=== PATIENT | male | born 1960 | race Caucasian/White ===

== ENCOUNTER 2018-09-17 15:14 | Emergency (ER) | payer OTHER ==
[~2018-09-17] VITALS: Ht 170.2 cm; Wt 102.1 kg
--- NOTE | 2018-09-17 15:45 | ED General ---
General Chief Complaint: Dizziness/Syncope Stated Complaint: DIZZINESS Source of Information: Patient Exam Limitations: No Limitations History of Present Illness Date Seen by Provider: Sep 17, 2018 Time Seen by Provider: 15:20 Initial Comments Here by EMS with report of near syncope. Apparently he was at a when he started feeling weak and lightheaded. He was able to make it outside and was feeling a little worse and was able to lay down on the ground. This didn't help. EMS was summoned and brought him here. Vital signs appropriate and normal for EMS. Does have history of previous stroke 2 years ago with no residual. Has been suffering from upper respiratory symptoms over the last couple of weeks and finished a Z-Ron about a week ago but had return of symptoms a few days ago and currently is doing antihistamine for sore throat and runny nose as well as some nasal congestion. Denies nausea, vomiting, sweating or breathing problems. Still has a little bit of dizziness which he is actually describing more as lightheadedness. Currently states feels a little better. He comes from [facility]. He is here with his brother at the . Timing/Duration: 1 Hour, Changing Over Time, Intermittent (last 1-2 weeks) Severity: Mild, Moderate Modifying Factors: worse with Movement; improves with Rest Associated Systoms: No Chest Pain, No Diaphoresis, No Fever/Chills, No Headaches, No Shortness of Air; Syncope, Weakness Allergies and Home Medications Allergies Coded Allergies: ibuprofen (Verified Allergy, Unknown, 09/17/18) Home Medications Amlodipine Besylate 5 Mg Tablet, 5 MG PO DAILY, (Reported) Carvedilol 3.125 Mg Tablet, 3.125 MG PO BID, (Reported) Oxycodone HCl/Acetaminophen 1 Each Tablet, 1 EACH PO Q4H PRN for PAIN-MODERATE, (Reported) Patient Home Medication List Home Medication List Reviewed: Yes Review of Systems Review of Systems Constitutional: see HPI; No chills, No fever; weakness EENTM: see HPI; No ear pain, No mouth pain Respiratory: No cough, No short of breath Cardiovascular: see HPI; No palpitations Gastrointestinal: No abdominal pain, No nausea, No vomiting Genitourinary: no symptoms reported Musculoskeletal: no symptoms reported Skin: no symptoms reported Psychiatric/Neurological: See HPI Hematologic/Lymphatic: No Symptoms Reported All Other Systems Reviewed Negative Unless Noted: Yes Past Wxwfcff-Btixih-Aqayem Hx Past Med/Social Hx: Reviewed Nursing Past Med/Soc Hx Patient Social History Alcohol Use: Denies Use Recreational Drug Use: No Smoking Status: Never a Smoker Physical Abuse: No Sexual Abuse: No Mistreated: No Fear: No Past Medical History Surgeries: Yes Gallbladder, Orthopedic Respiratory: No Cardiac: Yes Hypertension Neurological: Yes Stroke Genitourinary: No Gastrointestinal: Yes Gastroesophageal Reflux Musculoskeletal: No Endocrine: No Cancer: No Family Medical History Reviewed Nursing Family Hx Physical Exam Vital Signs Vital Signs - First Documented 09/17/18 15:35 Temp 96.9 Pulse 84 Resp 20 B/P (MAP) 151/89 (109) Pulse Ox 97 Capillary Refill : Height, Weight, BMI Height: '" Weight: lbs. oz. 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 Skin: Normal Color, Warm/Dry Progress/Results/Core Measures Suspected Sepsis SIRS Temperature: Pulse: Respiratory Rate: Laboratory Tests 09/17/18 15:36: White Blood Count 10.1 Blood Pressure / Mean: Laboratory Tests 09/17/18 15:36: Creatinine 0.97, Platelet Count 281, Total Bilirubin 0.7 Results/Orders Lab Results Laboratory Tests Test 09/17/18 15:36 09/17/18 16:30 Range/Units White Blood Count 10.1 4.3-11.0 10^3/uL Red Blood Count 5.13 4.35-5.85 10^6/uL Hemoglobin 14.6 13.3-17.7 G/DL Hematocrit 43 40-54 % Mean Corpuscular Volume 83 80-99 FL Mean Corpuscular Hemoglobin 29 25-34 PG Mean Corpuscular Hemoglobin Concent 34 32-36 G/DL Red Cell Distribution Width 13.7 10.0-14.5 % Platelet Count 281 130-400 10^3/uL Mean Platelet Volume 8.5 7.4-10.4 FL Neutrophils (%) (Auto) 68 42-75 % Lymphocytes (%) (Auto) 18 12-44 % Monocytes (%) (Auto) 6 0-12 % Eosinophils (%) (Auto) 7 0-10 % Basophils (%) (Auto) 1 0-10 % Neutrophils # (Auto) 6.8 1.8-7.8 X 10^3 Lymphocytes # (Auto) 1.9 1.0-4.0 X 10^3 Monocytes # (Auto) 0.7 0.0-1.0 X 10^3 Eosinophils # (Auto) 0.7 H 0.0-0.3 10^3/uL Basophils # (Auto) 0.1 0.0-0.1 10^3/uL D-Dimer 0.33 0.00-0.49 UG/ML Sodium Level 139 135-145 MMOL/L Potassium Level 3.7 3.6-5.0 MMOL/L Chloride Level 104 98-107 MMOL/L Carbon Dioxide Level 28 21-32 MMOL/L Anion Gap 7 5-14 MMOL/L Blood Urea Nitrogen 11 7-18 MG/DL Creatinine 0.97 0.60-1.30 MG/DL Estimat Glomerular Filtration Rate > 60 BUN/Creatinine Ratio 11 Glucose Level 131 H 70-105 MG/DL Calcium Level 9.9 8.5-10.1 MG/DL Corrected Calcium 9.7 8.5-10.1 MG/DL Total Bilirubin 0.7 0.1-1.0 MG/DL Aspartate Amino Transf (AST/SGOT) 22 5-34 U/L Alanine Aminotransferase (ALT/SGPT) 19 0-55 U/L Alkaline Phosphatase 46 40-136 U/L Troponin I < 0.30 <0.30 NG/ML C-Reactive Protein High Sensitivity 1.34 H 0.00-0.50 MG/DL Total Protein 7.2 6.4-8.2 GM/DL Albumin 4.2 3.2-4.5 GM/DL Thyroid Stimulating Hormone (TSH) 1.65 0.35-4.94 UIU/ML Urine Color YELLOW Urine Clarity CLEAR Urine pH 7 5-9 Urine Specific [place] 1.010 L 1.016-1.022 Urine Protein NEGATIVE NEGATIVE Urine Glucose (UA) NEGATIVE NEGATIVE Urine Ketones NEGATIVE NEGATIVE Urine Nitrite NEGATIVE NEGATIVE Urine Bilirubin NEGATIVE NEGATIVE Urine Urobilinogen NORMAL NORMAL MG/DL Urine Leukocyte Esterase NEGATIVE NEGATIVE Urine RBC (Auto) NEGATIVE NEGATIVE Urine RBC NONE /HPF Urine WBC NONE /HPF Urine Crystals PRESENT H /LPF Urine Amorphous Sediment FEW ROLAND URATES H /LPF Urine Bacteria NONE /HPF Urine Casts NONE /LPF Urine Mucus TRACE /LPF Urine Culture Indicated NO My Orders Orders - PRINCESS MONGE MD Cbc With Automated Diff (09/17/18 15:30) Comprehensive Metabolic Panel (09/17/18 15:30) Hs C Reactive Protein (09/17/18 15:30) Fibrin Degradation Products (09/17/18 15:30) Thyroid Stimulating Hormone (09/17/18 15:30) Troponin I (09/17/18 15:30) Ua Culture If Indicated (09/17/18 15:30) Chest 1 View, Ap/Pa Only (09/17/18 15:30) Ekg Tracing (09/17/18 15:30) Monitor-Rhythm Ecg Trace Only (09/17/18 15:30) Saline Lock/Iv-Start (09/17/18 15:30) Ns Iv 1000 Ml (Sodium Chloride 0.9%) (09/17/18 15:30) Ct Head Wo (09/17/18 15:30) Medications Given in ED Current Medications Medications Dose Ordered Sig/Iban Route Start Time Stop Time Status Last Admin Dose Admin Sodium Chloride 1,000 ml @ 0 mls/hr Q0M ONCE IV 09/17/18 15:30 09/17/18 15:37 DC 09/17/18 16:30 0 MLS/HR Vital Signs/I&O 09/17/18 15:35 Temp 96.9 Pulse 84 Resp 20 B/P (MAP) 151/89 (109) Pulse Ox 97 Capillary Refill : Progress Note : Progress Note Seen and evaluated. IV, labs, EKG and chest x-ray ordered. Normal saline 1 L bolus. We will check CT of the head. UA ordered as well. 1700: CT results noted. Feeling a little better. Decadron 10 mg IV and Augmentin 875 one tab by mouth given. Discharged home with return precautions. Patient verbalize understanding instructions and agreement with plan. ECG Initial ECG Impression Date: Sep 17, 2018 Initial ECG Impression Time: 16:21 Initial ECG Rate: 67 Initial ECG Rhythm: Normal Sinus Comment Sinus rhythm with normal axis. No evidence of ST elevation NH. Artifact noted on EKG but does have underlying P waves with OR interval less than 20. Interpreted by me. Diagnostic Imaging Diagonstic Imaging: CT Plain Films/CT/US/NM/MRI: head Comments [facility] [place], [place] NAME: RAJENDRA CLARK [facility] REC#: [id number] PT STATUS: REG ER : 1960 PHYSICIAN: PRINCESS MONGE MD ADMIT DATE: 09/17/18/ER Draft Date of Exam:09/17/18 CT HEAD WO INDICATION: Pre-syncope and weakness. Noncontrast brain CT is performed. There is no previous study for comparison. There are no extra-axial fluid collections. No intracranial hemorrhage. No intracranial mass or mass effect. No midline shift. The ventricles are normal in size and position. There is an old lacunar infarct in the right lenticular nucleus. There is an old lacunar infarct in the right caudate nucleus as well. There is no definite acute-appearing abnormality. Calvarial windows are unremarkable. There is some fluid and mucosal thickening in the ethmoid air cells and visualized portions of the maxillary sinuses. IMPRESSION: No acute hemorrhage or mass effect. Old lacunar infarcts in the right caudate body and lenticular nucleus are noted. Underlying sinus disease in the visualized portions of mastoid sinuses and ethmoid air cells. Dictated on workstation # [id number] Dict: 09/17/18 1605 Trans: 09/17/18 1610 [id number] Interpreted by: THADDEUS BARKLEY MD Electronically signed by: Diagonstic Imaging: Xray Plain Films/CT/US/NM/MRI: chest Comments [facility] [place] [place] NAME: RAJENDRA CLARK [facility] REC#: [id number] PT STATUS: REG ER : 1960 PHYSICIAN: PRINCESS MONGE MD ADMIT DATE: 09/17/18/ER Draft Date of Exam:09/17/18 CHEST 1 VIEW, AP/PA ONLY INDICATION: Pre-syncope and weakness. Frontal chest obtained at 03:51 p.m. Heart is borderline in size. Mediastinal silhouette is unremarkable. The lungs are clear. There is no pneumothorax or pleural fluid. IMPRESSION: No acute process in the chest. Dictated on workstation # [id number] Dict: 09/17/18 1602 Trans: 09/17/18 1604 [id number] Interpreted by: THADDEUS BARKLEY MD Electronically signed by: Departure Impression Primary Impression: Acute sinusitis Qualified Codes: J01.00 - Acute maxillary sinusitis, unspecified Disposition: HOME, SELF-CARE Condition: Improved Departure-Patient Inst. Decision time for Depature: 17:05 Referrals: NO,LOCAL PHYSICIAN (PCP) Primary Care Physician Patient Instructions: Sinusitis, Adult (DC) Add. Discharge Instructions: All discharge instructions reviewed with patient and/or family. Voiced understanding. Take medications as directed. Follow-up with your Dr. in a few days for recheck. Drink plenty of fluids. Return for worse pain, fever, vomiting, weakness, rhythm problems or other concerns as needed. Scripts Amoxicillin/Potassium Clav (Amox Tr-K Clv 875-125 mg Tab) 1 Each Tablet 1 EACH PO BID, #19 TAB 0 Refills Prov: PRINCESS MONGE MD 09/17/18 PRINCESS MONGE MD Sep 17, 2018 15:45
[2018-09-17] MEDS ORDERED: ETOD400T PO (15:48)
[2018-09-17] MEDS ORDERED: GABA-488 PO (15:48)
[2018-09-17 15:51] LABS: BASOPHILS # (AUTO) 0.1 10^3/uL (0.0-0.1); BASOPHILS % (AUTO) 1 % (0-10); EOSINOPHILS # (AUTO) 0.7 10^3/uL (0.0-0.3); EOSINOPHILS % (AUTO) 7 % (0-10); HEMATOCRIT 43 % (40-54); HEMOGLOBIN 14.6 G/DL (13.3-17.7); LYMPHOCYTES # (AUTO) 1.9 X 10^3 (1.0-4.0); LYMPHOCYTES % (AUTO) 18 % (12-44); MEAN CORPUSCULAR HEMOGLOBIN 29 PG (25-34); MEAN CORPUSCULAR HGB CONC 34 G/DL (32-36); MEAN CORPUSCULAR VOLUME 83 FL (80-99); MEAN PLATELET VOLUME 8.5 FL (7.4-10.4); MONOCYTES # (AUTO) 0.7 X 10^3 (0.0-1.0); MONOCYTES % (AUTO) 6 % (0-12); NEUTROPHILS # (AUTO) 6.8 X 10^3 (1.8-7.8); NEUTROPHILS % (AUTO) 68 % (42-75); PLATELET COUNT 281 10^3/uL (130-400); RED BLOOD COUNT 5.13 10^6/uL (4.35-5.85); RED CELL DISTRIBUTION WIDTH 13.7 % (10.0-14.5); WHITE BLOOD COUNT 10.1 10^3/uL (4.3-11.0)
[2018-09-17 16:04] LABS: ALANINE AMINOTRANSFERASE 19 U/L (0-55); ALBUMIN 4.2 GM/DL (3.2-4.5); ALKALINE PHOSPHATASE 46 U/L (40-136); BILIRUBIN,TOTAL 0.7 MG/DL (0.1-1.0); BUN/CREATININE RATIO 11; CALCIUM 9.9 MG/DL (8.5-10.1); CARBON DIOXIDE 28 MMOL/L (21-32); CHLORIDE 104 MMOL/L (98-107); CREATININE SERUM 0.97 MG/DL (0.60-1.30); GFR ESTIMATED > 60; GLUCOSE 131 MG/DL (70-105); POTASSIUM 3.7 MMOL/L (3.6-5.0); SODIUM 139 MMOL/L (135-145); TOTAL PROTEIN 7.2 GM/DL (6.4-8.2)
--- NOTE | 2018-09-17 16:05 | Diagnostic Imaging Report ---
INDICATION: Pre-syncope and weakness. Frontal chest obtained at 03:51 p.m. Heart is borderline in size. Mediastinal silhouette is unremarkable. The lungs are clear. There is no pneumothorax or pleural fluid. IMPRESSION: No acute process in the chest. Dictated by: Dictated on workstation # [id number]
--- NOTE | 2018-09-17 16:11 | Diagnostic Imaging Report ---
INDICATION: Pre-syncope and weakness. Noncontrast brain CT is performed. There is no previous study for comparison. There are no extra-axial fluid collections. No intracranial hemorrhage. No intracranial mass or mass effect. No midline shift. The ventricles are normal in size and position. There is an old lacunar infarct in the right lenticular nucleus. There is an old lacunar infarct in the right caudate nucleus as well. There is no definite acute-appearing abnormality. Calvarial windows are unremarkable. There is some fluid and mucosal thickening in the ethmoid air cells and visualized portions of the maxillary sinuses. IMPRESSION: No acute hemorrhage or mass effect. Old lacunar infarcts in the right caudate body and lenticular nucleus are noted. Underlying sinus disease in the visualized portions of mastoid sinuses and ethmoid air cells. Dictated by: Dictated on workstation # [id number]
[2018-09-17] MEDS: NS IV 1000 ML 1,000 ML IV ONE (16:30)
[2018-09-17] MEDS ORDERED: PRAV10TA PO (16:38)
[2018-09-17] MEDS ORDERED: CARV3.122 PO (16:38)
[2018-09-17] MEDS ORDERED: AMLO5TAB7 PO (16:38)
[2018-09-17] MEDS ORDERED: OXYC1TAB87 PO (16:38)
[2018-09-17] MEDS ORDERED: LIPA1CAP2 PO (16:38)
[2018-09-17 16:40] LABS: BILIRUBIN,URINE NEGATIVE (NEGATIVE); CLARITY,URINE CLEAR; COLOR,URINE YELLOW; GLUCOSE, URINE (UA) NEGATIVE (NEGATIVE); KETONES,URINE NEGATIVE (NEGATIVE); LEUKOCYTE ESTERASE ,URINE NEGATIVE (NEGATIVE); NITRITE,URINE NEGATIVE (NEGATIVE); PH,URINE 7 (5-9); PROTEIN,URINE NEGATIVE (NEGATIVE); UROBILINOGEN,URINE NORMAL (NORMAL)
[2018-09-17 16:48] LABS: AMORPHOUS SEDIMENT,UR FEW AMOR URATES /LPF
[2018-09-17] MEDS ORDERED: AMOX1TAB12 PO (17:04)
[2018-09-17] MEDS: AUGMENTIN 875 MG TAB (AMOXICILLIN/CLAVULANATE) PO STA (17:40)
[2018-09-17] MEDS: DEXAMETHASONE 10 MG/ML (DECADRON) 1 ML VIAL IV ONE (17:40)
[2018-09-17 17:46] VITALS: BP 125/83
== END 2018-09-17 17:46 | disposition home or self-care (01) ==
LOC: ER 15:20 → EDBD 15:20 → ER 17:46
DX: J01.00 Acute maxillary sinusitis, unspecified (principal); K21.9 Gastro-esophageal reflux disease without esophagitis; I10 Essential (primary) hypertension; Z86.73 Personal history of transient ischemic attack (TIA), and cerebral infarction without residual deficits; Z88.6 Allergy status to analgesic agent
CPT/HCPCS: 36415; 70450; 71045; 80053; 81000; 84443; 84484; 85025; 85379; 86141; 93005; 93041; 96361; 96374